=== PATIENT | male | born 1985 | race American Indian/Alaskan Native ===

== ENCOUNTER 2017-03-22 15:55 | Emergency (ER) | payer SELFPAY ==
[2017-03-22 16:12] VITALS: BP 134/101
[2017-03-22] MEDS ORDERED: MOTRIN PO ONE (16:48)
--- NOTE | 2017-03-22 16:49 | XRay Report ---
Right ankle: Trauma, pain. There is a nondisplaced and minimally fracture of the medial malleolus. The tibiotalar alignment is intact. There is mild focal swelling overlies medial malleolus. No above findings. Impression: Medial malleolar fracture. Right third toe: There is a fracture through the distal proximal phalanx of the third digit with slight angulation of the distal fragment which is somewhat comminuted. The articular margin however appears aligned. In addition there is a small avulsion and transverse fracture through the base of the middle phalanx of the second digit. The remaining foot appears unremarkable in the AP projection. Impression: Fractured second and third digits.
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
== END 2017-03-22 17:45 | disposition home or self-care (01) ==
LOC: ED 15:55
DX: S92.501A Displaced unspecified fracture of right lesser toe(s), initial encounter for closed fracture (principal); S82.51XA Displaced fracture of medial malleolus of right tibia, initial encounter for closed fracture; F17.210 Nicotine dependence, cigarettes, uncomplicated; W19.XXXA Unspecified fall, initial encounter; Y93.89 Activity, other specified; Y92.89 Other specified places as the place of occurrence of the external cause; Y99.8 Other external cause status
CPT/HCPCS: 99284